=== PATIENT | male | born 1960 | race Two or more races ===

== ENCOUNTER 2025-07-20 00:01 | Emergency (ER) | payer OTHER ==
[~2025-07-20] VITALS: Ht 177.8 cm; Wt 81.6 kg
[2025-07-20] MEDS: ACETAMINOPHEN ES 500 MG TABLET PO ONE (01:00)
[2025-07-20] MEDS: LIDOCAINE 5% (PATCH) 1 EA PATCH TP SCH (01:00)
[2025-07-20 01:11] LABS: PLATELET COUNT (AUTO) 104 K/uL (150-450); RED BLOOD CELL COUNT(AUTO) 4.07 MIL/uL (4.5-6.0); RED CELL DISTRIBUTION WIDTH 13.5 % (11.5-15.0); WHITE BLOOD COUNT (AUTO) 6.7 K/uL (4.3-11.0)
[2025-07-20 01:35] LABS: CALCIUM, SERUM 8.8 mg/dL (8.5-10.1); CREATININE 0.7 mg/dL (0.6-1.3); SODIUM SERUM 137 mmol/L (136-145); UREA NITROGEN, BLOOD 11 mg/dL (7-18)
[2025-07-20 01:37] LABS: ASPARTATE AMINOTRANSFERASE 25 U/L (15-37); TOTAL PROTEIN, SERUM 6.6 g/dL (6.4-8.2)
[2025-07-20] MEDS ORDERED: ACETAMINOPHEN ES 500 MG TABLET ONE (02:14)
[2025-07-20] MEDS ORDERED: LIDOCAINE 5% (PATCH) 1 EA PATCH TP ONE (02:14)
[2025-07-20] MEDS ORDERED: ACET-2030 PO (03:00)
[2025-07-20] MEDS ORDERED: LIDO30AD10 TP (03:00)
[2025-07-20 05:55] VITALS: BP 104/70; TEMP 97.9; O2SAT 98
[2025-07-30] MEDS ORDERED: QUET25TA PO ×2 (13:02)
[2025-07-30] MEDS ORDERED: GABA300C PO (13:02)
[2025-07-31] MEDS ORDERED: CEPH-570 PO (10:52)
== END 2025-07-20 05:56 ==
LOC: ER 00:07
DX: M54.50 Low back pain, unspecified (principal); M79.605 Pain in left leg; E78.5 Hyperlipidemia, unspecified; F01.53 Vascular dementia, unspecified severity, with mood disturbance; I11.9 Hypertensive heart disease without heart failure; Z66 Do not resuscitate; Z86.73 Personal history of transient ischemic attack (TIA), and cerebral infarction without residual deficits; Z88.5 Allergy status to narcotic agent; Z98.61 Coronary angioplasty status
CPT/HCPCS: 99285; 73700; 93005; 72131; 85025; 80048; 80076; 36415; 84484; J7030

== ENCOUNTER 2025-07-25 22:59 | Inpatient (IN) | payer OTHER ==
[~2025-07-25] VITALS: Ht 177.8 cm; Wt 63.0 kg
[~2025-07-25 22:59] MED LIST: ACET-2030 PO; LIDO30AD10 TP
[2025-07-25 23:56] LABS: PLATELET COUNT (AUTO) 96 K/uL (150-450); RED BLOOD CELL COUNT(AUTO) 3.99 MIL/uL (4.5-6.0); RED CELL DISTRIBUTION WIDTH 13.5 % (11.5-15.0); WHITE BLOOD COUNT (AUTO) 7.1 K/uL (4.3-11.0)
[2025-07-26 00:02] LABS: CALCIUM, SERUM 9.1 mg/dL (8.5-10.1); CREATININE 0.9 mg/dL (0.6-1.3); SODIUM SERUM 141.0 mmol/L (136-145); UREA NITROGEN, BLOOD 19.0 mg/dL (7-18)
[2025-07-26 00:09] LABS: INR 1.07 (0.91-1.10)
[2025-07-26 01:11] LABS: LYMPHOCYTES % (MANUAL) 26 % (16-48); MONOCYTES % (MANUAL) 10 % (0-11.0); NEUTROPHILS % (MANUAL) 64 (42-76); PLATELET ESTIMATE DECREASED
[2025-07-26] MEDS: IV NS 0.9% 1,000 ML BAG IV ONE (02:04)
[2025-07-26] MEDS ORDERED: ONDANSETRON HCL/PF 4 MG/2 ML VIAL IVP PRN (04:30)
[2025-07-26] MEDS ORDERED: MAGNESIUM HYDROXIDE 30 ML UDC PO PRN (04:30)
[2025-07-26] MEDS ORDERED: MAG HYDROX/AL HYDROX/SIMETH 30 ML UDC PO PRN (04:30)
[2025-07-26] MEDS ORDERED: HYDROCODONE/APAP 5/325MG TABLET PO PRN (04:30)
[2025-07-26] MEDS: IV NS 0.9% 1,000 ML IV PRN (06:14)
[2025-07-26] MEDS ORDERED: CEFTRIAXONE 1GM BAG (ER ONLY) 50 ML IV ONE (06:59)
[2025-07-26] MEDS: CEFTRIAXONE 1 G in IV D5W 50 ML IV SCH (07:00)
[2025-07-26] MEDS: PANTOPRAZOLE 40 MG TABLET.DR PO SCH (09:13)
[2025-07-26] MEDS: LIDOCAINE 5% (PATCH) 1 EA PATCH TP SCH (09:13)
[2025-07-26] MEDS ORDERED: ATOR40TA PO (10:34)
[2025-07-26] MEDS ORDERED: TRAZ-182 PO (10:34)
[2025-07-26] MEDS ORDERED: MULT-213 PO (10:34)
[2025-07-26] MEDS ORDERED: FERR325T24 PO (10:34)
[2025-07-26] MEDS ORDERED: ACET325T53 PO (10:34)
[2025-07-26] MEDS ORDERED: CLON0.5T4 PO (10:34)
[2025-07-26] MEDS ORDERED: ASPI-1420 PO (10:34)
[2025-07-26] MEDS ORDERED: RISP0.5T65 PO (10:34)
[2025-07-26] MEDS ORDERED: DOCU100C36 PO (10:34)
[2025-07-26] MEDS ORDERED: QUET25TA PO (10:34)
[2025-07-26] MEDS ORDERED: MAGN400O6 PO (10:34)
[2025-07-26] MEDS ORDERED: CLON0.1T PO (10:34)
[2025-07-26] MEDS ORDERED: DIVA125C5 PO (10:34)
[2025-07-26 11:30] VITALS: BP 134/66; TEMP 97.9; O2SAT 98
[2025-07-26 12:00] VITALS: BP 143/73; TEMP 98.1; O2SAT 97
[2025-07-26 14:01] LABS: APPEARANCE,URINE CLEAR (CLEAR); BLOOD, URINE 3+ Ery/uL (NEGATIVE); LEUKOCYTE ESTERASE ,URINE NEGATIVE (NEGATIVE); NITRITE, URINE NEGATIVE (NEGATIVE); UGLUCOSE NEGATIVE (NEGATIVE)
[2025-07-26 14:06] LABS: ADD URINE CULTURE NO; SQUAMOUS EPITHELIAL CELL,UR None Seen /HPF (None Seen)
[2025-07-26 16:00] VITALS: BP 108/90; TEMP 97.7; O2SAT 96
[2025-07-26 20:00] VITALS: BP 112/56; TEMP 97.9; O2SAT 97
[2025-07-26] MEDS: TEMAZEPAM 15 MG CAPSULE PO PRN (21:40)
[2025-07-27] VITALS: BP 111/73; TEMP 98.4; O2SAT 97
[2025-07-27 04:00] VITALS: BP 90/60; TEMP 98.4; O2SAT 100
[2025-07-27] MEDS ORDERED: CEFTRIAXONE 1GM BAG (ER ONLY) 50 ML IV ONE (04:47)
[2025-07-27 07:25] LABS: PLATELET COUNT (AUTO) 74 K/uL (150-450); RED BLOOD CELL COUNT(AUTO) 3.45 MIL/uL (4.5-6.0); RED CELL DISTRIBUTION WIDTH 13.6 % (11.5-15.0); WHITE BLOOD COUNT (AUTO) 5.6 K/uL (4.3-11.0)
[2025-07-27 07:58] LABS: CALCIUM, SERUM 8.4 mg/dL (8.5-10.1); CREATININE 0.6 mg/dL (0.6-1.3); PHOSPHORUS 2.9 mg/dL (2.5-4.9); SODIUM SERUM 142.0 mmol/L (136-145); UREA NITROGEN, BLOOD 11.0 mg/dL (7-18)
[2025-07-27 07:59] LABS: LDL 48.0 mg/dL (0-99)
[2025-07-27 08:00] VITALS: BP 112/78; TEMP 98.2; O2SAT 96
[2025-07-27 09:02] LABS: EOSINOPHILS % (MANUAL) 1 % (0-4); LYMPHOCYTES % (MANUAL) 25 % (16-48); MONOCYTES % (MANUAL) 7 % (0-11.0); NEUTROPHILS % (MANUAL) 67 (42-76); PLATELET ESTIMATE DECREASED
[2025-07-27 12:00] VITALS: BP 98/71; TEMP 99; O2SAT 98
[2025-07-27 16:00] VITALS: BP 116/82; TEMP 98.4; O2SAT 96
[2025-07-27 20:00] VITALS: BP 95/61; TEMP 97.3; O2SAT 97
[2025-07-27] MEDS: ACETAMINOPHEN 325 MG TABLET PO PRN (20:41)
[2025-07-28] VITALS: BP 106/77; TEMP 98.2; O2SAT 96
[2025-07-28 04:00] VITALS: BP 106/76; TEMP 98; O2SAT 98
[2025-07-28 08:47] VITALS: BP 136/77; TEMP 98.2; O2SAT 95
[2025-07-28] MEDS: THERAHONEY GEL 1.5 OZ TUBE TP SCH (09:47)
[2025-07-28] MEDS: Z GUARD REMEDY 4 OZ OINT TP PRN (09:48)
[2025-07-28 12:13] VITALS: BP 115/100; TEMP 98.1; O2SAT 95
[2025-07-28] MEDS ORDERED: LIDOCAINE 2%-EPI 1:100,000 30 ML VIAL IJ ONE (13:00)
[2025-07-28 16:42] VITALS: BP 131/61; TEMP 97.5; O2SAT 97
[2025-07-28 20:00] VITALS: BP 107/65; TEMP 98.2; O2SAT 97
[2025-07-29] VITALS: BP 129/94; TEMP 98.3; O2SAT 100
[2025-07-29 08:35] VITALS: BP 102/74; TEMP 97.9; O2SAT 97
[2025-07-29] MEDS ORDERED: LACTULOSE 10 G/15 ML UDC (PYXIS) PO PRN (11:30)
[2025-07-29] MEDS: POLYETHYLENE GLYCOL 3350 17 GM POWD.PACK PO SCH (11:35)
[2025-07-29] MEDS: DIVALPROEX SODIUM 125 MG CAP.SPRINK PO SCH (11:36)
[2025-07-29] MEDS: SENNOSIDES/DOCUSATE SODIUM 1 TAB TABLET PO SCH (11:36)
[2025-07-29 13:06] VITALS: BP 118/74; TEMP 97.7; O2SAT 100
[2025-07-29] MEDS: GABAPENTIN 300 MG CAPSULE PO SCH (13:50)
[2025-07-29 16:00] VITALS: BP 104/68; TEMP 97.5; O2SAT 97
[2025-07-29] MEDS ORDERED: QUETIAPINE FUMARATE 25 MG TABLET PO SCH (17:00)
[2025-07-29] MEDS: QUETIAPINE FUMARATE 25 MG TABLET PO SCH ×2 (17:16→21:59)
[2025-07-29] MEDS: DOCUSATE SODIUM 100 MG CAPSULE PO SCH (17:17)
[2025-07-29 20:00] VITALS: BP 92/70; TEMP 97.9; O2SAT 98
[2025-07-29] MEDS: ATORVASTATIN 40 MG TABLET PO SCH (21:46)
[2025-07-30] VITALS: BP 99/62; TEMP 97.7; O2SAT 98
[2025-07-30 04:00] VITALS: BP 90/55; TEMP 97.5; O2SAT 96
[2025-07-30 07:38] LABS: PLATELET COUNT (AUTO) 103 K/uL (150-450); RED BLOOD CELL COUNT(AUTO) 3.44 MIL/uL (4.5-6.0); RED CELL DISTRIBUTION WIDTH 13.6 % (11.5-15.0); WHITE BLOOD COUNT (AUTO) 7.0 K/uL (4.3-11.0)
[2025-07-30 08:00] VITALS: BP 108/62; TEMP 97.9; O2SAT 100
[2025-07-30 08:07] LABS: CALCIUM, SERUM 8.6 mg/dL (8.5-10.1); CREATININE 0.6 mg/dL (0.6-1.3); PHOSPHORUS 3.1 mg/dL (2.5-4.9); SODIUM SERUM 142.0 mmol/L (136-145); UREA NITROGEN, BLOOD 9.0 mg/dL (7-18)
[2025-07-30 08:43] LABS: VALPROIC ACID 27.0 ug/mL (50-100)
[2025-07-30] MEDS: MULTIVIT W/MINERALS 1 TAB TABLET PO SCH (08:48)
[2025-07-30] MEDS: FERROUS SULFATE (325 MG) 325 MG/TAB TABLET PO SCH (08:49)
[2025-07-30] MEDS: ASPIRIN EC 81 MG TABLET.DR PO SCH (08:49)
[2025-07-30] MEDS: POTASSIUM CHLORIDE 20 MEQ TAB.PRT.SR PO SCH (09:25)
[2025-07-30] MEDS ORDERED: GABA300C PO (13:02)
[2025-07-30] MEDS ORDERED: QUET25TA PO ×2 (13:02)
[2025-07-31] MEDS ORDERED: CEPH-570 PO (10:52)
== END 2025-07-30 17:20 | disposition home health service (06) | DRG 380 ==
LOC: ER 23:01 → TELE IN 07-26 05:56 → TELE 07-26 07:44 → MED 07-30 12:30
PROVIDERS: ADMIT Internal Medicine; ATTEND Nurse Practitioner Family
DX: L89.210 Pressure ulcer of right hip, unstageable (principal); L89.890 Pressure ulcer of other site, unstageable; L89.116 Pressure-induced deep tissue damage of right upper back; D69.6 Thrombocytopenia, unspecified; F03.918 Unspecified dementia, unspecified severity, with other behavioral disturbance; L89.891 Pressure ulcer of other site, stage 1; F32.9 Major depressive disorder, single episode, unspecified; L89.226 Pressure-induced deep tissue damage of left hip; F03.93 Unspecified dementia, unspecified severity, with mood disturbance; I25.10 Atherosclerotic heart disease of native coronary artery without angina pectoris; M24.561 Contracture, right knee; M24.562 Contracture, left knee; E78.5 Hyperlipidemia, unspecified; Z86.73 Personal history of transient ischemic attack (TIA), and cerebral infarction without residual deficits; Z95.1 Presence of aortocoronary bypass graft
CPT/HCPCS: 36415; 71045-TC; 73080-TC; 73502; 80048-TC; 80061-TC; 80164-TC; 81001; 83735-TC; 84100-TC; 85025-TC; 85027-TC; 85652-TC; 85730-TC; 86140-TC; 87081-TC; 87086-TC; 93307-TC; A6254; A6403; G0378; J0696; J3490; J7030; J7060

== ENCOUNTER 2025-07-30 19:36 | Inpatient (IN) | payer OTHER ==
[~2025-07-30] VITALS: Ht 177.8 cm; Wt 70.3 kg
[~2025-07-30 19:36] MED LIST changes: +ACET325T53 PO; +ASPI-1420 PO; +ATOR40TA PO; +CLON0.1T PO; +CLON0.5T4 PO; +DIVA125C5 PO; +DOCU100C36 PO; +FERR325T24 PO; +GABA300C PO; +MAGN400O6 PO; +MULT-213 PO; +QUET25TA PO; +RISP0.5T65 PO; +TRAZ-182 PO
[2025-07-30 21:28] LABS: APPEARANCE,URINE SLIGHTLY CLOUDY (CLEAR); BLOOD, URINE 2+ Ery/uL (NEGATIVE); LEUKOCYTE ESTERASE ,URINE TRACE (NEGATIVE); NITRITE, URINE NEGATIVE (NEGATIVE); UGLUCOSE NEGATIVE (NEGATIVE)
[2025-07-30 21:37] LABS: CALCIUM OXALATE CRYSTALS,UR Moderate /HPF (None Seen)
[2025-07-30 21:38] LABS: ADD URINE CULTURE YES; SQUAMOUS EPITHELIAL CELL,UR Few /HPF (None Seen); URINE AMORPHOUS URATE Many /HPF (None Seen)
[2025-07-30 21:46] LABS: PLATELET COUNT (AUTO) 109 K/uL (150-450); RED BLOOD CELL COUNT(AUTO) 3.52 MIL/uL (4.5-6.0); RED CELL DISTRIBUTION WIDTH 13.7 % (11.5-15.0); WHITE BLOOD COUNT (AUTO) 6.8 K/uL (4.3-11.0)
[2025-07-30 21:57] LABS: CALCIUM, SERUM 8.3 mg/dL (8.5-10.1); CREATININE 0.6 mg/dL (0.6-1.3); SODIUM SERUM 141.0 mmol/L (136-145); UREA NITROGEN, BLOOD 11.0 mg/dL (7-18)
[2025-07-30 22:05] LABS: ASPARTATE AMINOTRANSFERASE 54.0 U/L (15-37); TOTAL PROTEIN, SERUM 5.4 g/dL (6.4-8.2)
[2025-07-30] MEDS ORDERED: MAG HYDROX/AL HYDROX/SIMETH 30 ML UDC PO PRN (23:00)
[2025-07-30] MEDS ORDERED: ACETAMINOPHEN 325 MG TABLET PO PRN (23:00)
[2025-07-30] MEDS ORDERED: ONDANSETRON HCL/PF 4 MG/2 ML VIAL IVP PRN (23:00)
[2025-07-30] MEDS ORDERED: TAMSULOSIN 0.4 MG CAP.SR.24H PO ONE (23:00)
[2025-07-30] MEDS ORDERED: MAGNESIUM HYDROXIDE 30 ML UDC PO PRN (23:00)
[2025-07-30 23:57] VITALS: BP 95/62; TEMP 98.2; O2SAT 98
[2025-07-31] VITALS: BP 95/62; TEMP 98.2; O2SAT 98
[2025-07-31] MEDS: ENOXAPARIN SODIUM 40 MG/0.4 ML DISP.SYRIN SQ SCH (01:45)
[2025-07-31] MEDS: TAMSULOSIN 0.4 MG CAP.SR.24H PO ONE (02:01)
[2025-07-31] MEDS: IV 1/2NS 1000 ML 1,000 ML IV SCH (02:05)
[2025-07-31 07:52] LABS: PLATELET COUNT (AUTO) 93 K/uL (150-450); RED BLOOD CELL COUNT(AUTO) 3.00 MIL/uL (4.5-6.0); RED CELL DISTRIBUTION WIDTH 13.4 % (11.5-15.0); WHITE BLOOD COUNT (AUTO) 4.9 K/uL (4.3-11.0)
[2025-07-31 07:55] LABS: CALCIUM, SERUM 8.1 mg/dL (8.5-10.1); CREATININE 0.5 mg/dL (0.6-1.3); PHOSPHORUS 2.7 mg/dL (2.5-4.9); SODIUM SERUM 141.0 mmol/L (136-145); UREA NITROGEN, BLOOD 10.0 mg/dL (7-18)
[2025-07-31 08:00] VITALS: BP 94/62; TEMP 98.2; O2SAT 95
[2025-07-31] MEDS: GABAPENTIN 100 MG CAPSULE PO SCH (08:11)
[2025-07-31] MEDS: PANTOPRAZOLE 40 MG TABLET.DR PO SCH (08:12)
[2025-07-31] MEDS: QUETIAPINE FUMARATE 25 MG TABLET PO SCH (08:12)
[2025-07-31] MEDS: THERAHONEY GEL 1.5 OZ TUBE TP SCH (10:45)
[2025-07-31 10:50] LABS: EOSINOPHILS % (MANUAL) 1 % (0-4); LYMPHOCYTES % (MANUAL) 19 % (16-48); MONOCYTES % (MANUAL) 7 % (0-11.0); NEUTROPHILS % (MANUAL) 73 (42-76); PLATELET ESTIMATE DECREASED
[2025-07-31] MEDS ORDERED: CEPH-570 PO (10:52)
[2025-07-31] MEDS ORDERED: QUETIAPINE FUMARATE 25 MG TABLET PO SCH (22:00)
== END 2025-07-31 14:31 | disposition home health service (06) | DRG 466 ==
LOC: ER 19:38 → MED 23:11
PROVIDERS: ATTEND Nurse Practitioner Family
DX: T83.511A Infection and inflammatory reaction due to indwelling urethral catheter, initial encounter (principal); L89.216 Pressure-induced deep tissue damage of right hip; L89.891 Pressure ulcer of other site, stage 1; N39.0 Urinary tract infection, site not specified; B96.89 Other specified bacterial agents as the cause of diseases classified elsewhere; F03.918 Unspecified dementia, unspecified severity, with other behavioral disturbance; D50.9 Iron deficiency anemia, unspecified; F32.9 Major depressive disorder, single episode, unspecified; I10 Essential (primary) hypertension; L89.896 Pressure-induced deep tissue damage of other site; E78.5 Hyperlipidemia, unspecified; I25.10 Atherosclerotic heart disease of native coronary artery without angina pectoris; M24.561 Contracture, right knee; M24.562 Contracture, left knee; Z95.1 Presence of aortocoronary bypass graft; Z98.61 Coronary angioplasty status; Y84.6 Urinary catheterization as the cause of abnormal reaction of the patient, or of later complication, without mention of misadventure at the time of the procedure; Y92.89 Other specified places as the place of occurrence of the external cause; Z86.73 Personal history of transient ischemic attack (TIA), and cerebral infarction without residual deficits; F03.93 Unspecified dementia, unspecified severity, with mood disturbance
CPT/HCPCS: 36415; 80048-TC; 80053-TC; 81001; 83735-TC; 84100-TC; 85025-TC; 85027-TC; 87086-TC; G0378; J1650; J3490